=== PATIENT | female | born 1985 | race Two or more races ===

== ENCOUNTER → 2024-10-24 09:41 | Outpatient (REF) | payer OTHER, SELFPAY ==
[2024-10-24 12:34] LABS: Hepatitis B Surface Antibody Positive
[2024-10-24 14:57] LABS: Rubella Positive
== END ==
LOC: OHS 09:41
PROVIDERS: ATTENDING PHYSICIAN Nurse Practitioner Family
DX: Z23 Encounter for immunization (principal)
CPT/HCPCS: 36415; 86480; 86706; 86735; 86762; 86765; 86787